=== PATIENT | female | born 1945 | race Caucasian/White ===

== ENCOUNTER → 2017-07-21 | Outpatient (CLI) | payer OTHER, MEDICARE | END | disposition home or self-care (01) | DX: M16.12 Unilateral primary osteoarthritis, left hip (principal); R26.2 Difficulty in walking, not elsewhere classified; M25.552 Pain in left hip; M25.652 Stiffness of left hip, not elsewhere classified; M62.81 Muscle weakness (generalized); Z74.1 Need for assistance with personal care | CPT/HCPCS: 97150 GO; 97161 GP; 97165 GO; 97530 GP; G8978 GP; G8979 GP; G8980 GP; G8987 GO; G8988 GO; G8989 GO ==

== ENCOUNTER 2017-08-10 22:04 | Inpatient (IN) | payer OTHER, MEDICARE ==
[~2017-08-10] VITALS: Ht 162.6 cm; Wt 57.2 kg
[~2017-08-10 22:04] MED LIST: ALENDRONATE SOD70 MG PO; CALTRATE 600 +1 EAC1 PO; IRON325 M1 PO; LOVASTATIN20 MG PO; SYNTHROID75 MCG PO
[2017-08-11 09:04] VITALS: BP 156/72
[2017-08-11 14:21] LABS: HEMATOCRIT 31.3 % (36.0-46.0); MCH 31.8 PG (29.0-34.0); MCHC 33.5 G/DL (30.0-36.0); MCV 94.8 FL (83-99); RBC DIS.WIDTH-CV 12.3 % (11.8-14.6); WHITE BLOOD COUNT 5.5 K/uL (4.1-10.2)
[2017-08-11 14:29] LABS: HEMOGLOBIN 10.5 G/DL (11.9-15.5); PLATELET COUNT 150 K/uL (156-360)
[2017-08-11 15:27] VITALS: BP 106/55
[2017-08-11 19:53] VITALS: BP 93/52
[2017-08-12 00:15] VITALS: BP 91/52
[2017-08-12 04:16] VITALS: BP 92/47
[2017-08-12 06:12] LABS: CHLORIDE 102 MEQ/L (99-109); CREATININE 0.7 MG/DL (0.6-1.3); GFR ESTIMATE (CALCULATED) > 59 mL/min/; GLUCOSE 113 mg/dL (70-99); POTASSIUM 4.1 MEQ/L (3.7-5.4); SODIUM 134 MEQ/L (136-147); UREA NITROGEN (BUN) 12 mg/dL (9-23)
[2017-08-12 08:08] VITALS: BP 99/48
[2017-08-12 12:05] VITALS: BP 124/58
[2017-08-12 14:19] LABS: HEMATOCRIT 27.6 % (36.0-46.0); HEMOGLOBIN 9.4 G/DL (11.9-15.5); MCV 94.8 FL (83-99)
[2017-08-12 15:30] VITALS: BP 101/50
[2017-08-12 19:45] VITALS: BP 122/57
[2017-08-13 00:20] VITALS: BP 109/54
[2017-08-13 04:30] VITALS: BP 100/52
[2017-08-13 05:51] LABS: HEMATOCRIT 26.3 % (36.0-46.0); HEMOGLOBIN 8.8 G/DL (11.9-15.5); MCV 92.6 FL (83-99)
[2017-08-13 08:21] VITALS: BP 121/59
[2017-08-13] MEDS ORDERED: HYDROCODON-ACE1 EAC7 PO (08:41)
[2017-08-13] MEDS ORDERED: DOCUSATE SODIU100 MG PO (08:41)
[2017-08-13] MEDS ORDERED: LOVENOX40 MG/0.4 SC (08:41)
[2017-08-13 12:15] VITALS: BP 115/57
== END 2017-08-13 13:48 | disposition home health service (06) | DRG 470 ==
LOC: ENRESERV 22:04 → 2SOUTH 08-11 08:32 → 3WEST 08-11 15:07 → 2SOUTH 08-11 16:13 → 3WEST 08-13 13:48
PROVIDERS: Orthopaedic Surgery; Physician Assistant
PROC: 0SRB0JZ Replacement of Left Hip Joint with Synthetic Substitute, Open Approach (ICD-10-PCS; principal; 2017-08-11)
DX: M16.12 Unilateral primary osteoarthritis, left hip (principal); M81.0 Age-related osteoporosis without current pathological fracture; K21.9 Gastro-esophageal reflux disease without esophagitis; E03.9 Hypothyroidism, unspecified; E78.00 Pure hypercholesterolemia, unspecified; Z90.710 Acquired absence of both cervix and uterus; Z83.3 Family history of diabetes mellitus
CPT/HCPCS: 73501; 80048; 85014; 85018; 85027; J0690; J1650; J1885; J2250; J2405; J3010; J7030; J7050